=== PATIENT | female | born 1975 | race Caucasian/White ===

== ENCOUNTER → 2018-09-19 16:52 | Outpatient (CLI) | payer BC, SELFPAY ==
--- NOTE | 2018-09-19 17:01 | MR_ITS ---
MR angio neck wo con CLINICAL INDICATION: Headache on left side of head, failure left pupil to dilate with the eyelid drooping, left-sided jaw and facial pain ITS.REASON: RUFUS'S SYNDROME ORDERING PHYSICIAN: Ryder Hui II, MD PATIENT AGE: 43 years COMPARISON: There are no previous exams available at this institution for comparison. The patient reports having an MRI as an outside institution on this same date however, that exam and that report is not available for comparison. Addendum may be added once that study is made available. TECHNIQUE: 3-D [id number] images are obtained without contrast with multi slab reformats. FINDINGS: The aortic arch is not imaged. The common carotid arteries beginning in the neck have an unremarkable appearance. The internal carotid arteries are also unremarkable. No stenotic lesions or occlusive lesions are evident. There is asymmetry in the vertebral arteries with the left vertebral artery being dominant.. IMPRESSION: 1. Negative MRA of the neck. No occlusive changes or stenotic lesions evident. 2. Dominant left vertebral artery
--- NOTE | 2018-09-19 17:01 | MR_ITS ---
MR angio head wo con CLINICAL INDICATION: Headache on left side of head, failure left pupil to dilate with the eyelid drooping, left-sided jaw and facial pain ITS.REASON: RUFUS'S SYNDROME ORDERING PHYSICIAN: Ryder Hui II, MD PATIENT AGE: 43 years COMPARISON: There are no previous exams available at this institution for comparison. The patient reports having an MRI as an outside institution on this same date however, that exam and that report is not available for comparison. Addendum may be added once that study is made available TECHNIQUE:: 3-D [id number] images are obtained without contrast with MIP reformats FINDINGS: No aneurysm, arteriovenous malformation, or major intracranial occlusive process is evident. 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 No major intracranial occlusive process is evident. IMPRESSION: 1. No acute intracranial vascular findings. No evidence of aneurysm or arteriovenous malformation. 2. 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
--- NOTE | 2018-09-19 17:20 | XR_ITS ---
XR chest 2V HISTORY: ITS.REASON: RUFUS'S SYNDROME ORDERING PHYSICIAN: Ryder Hui II, MD PATIENT AGE: 43 years COMPARISON: None FINDINGS: The cardiomediastinal silhouette and pulmonary vascularity are within normal limits. There is a pectus deformity as a normal variant. Lungs are clear. No acute bony findings. IMPRESSION: No acute finding
== END ==
PROVIDERS: PCP Ophthalmology; Visit Provider Ophthalmology
DX: H57.02 Anisocoria (principal); G90.2 Horner's syndrome
CPT/HCPCS: 70544; 70547; 71046